=== PATIENT | female | born 1975 | race Caucasian/White ===

== ENCOUNTER 2022-03-22 19:33 | Emergency (ER) | payer MEDICARE, BC ==
[~2022-03-22] VITALS: Ht 162.6 cm; Wt 77.1 kg
[~2022-03-22 19:33] MED LIST: CARB200T PO; LAMO200T2 PO; THYR120T2 PO; ZONI100C31 PO
[2022-03-22] MEDS ORDERED: OXYCODONE/APAP 5-325 MG TABLET PO ONE (20:30)
[2022-03-22] MEDS ORDERED: OXYCODONE/APAP 5-325 MG TABLET ONE (20:38)
[2022-03-22] MEDS ORDERED: HYDR-3980 PO (20:39)
--- NOTE | 2022-03-22 21:44 | NUR ---
Patient resting in bed with friend at bedside, updated on plan of care, awaiting ultrasound. States that pain is better at this time. No s/s of any distress noted, will continue to monitor.
[2022-03-22 23:04] VITALS: BP 119/85
--- NOTE | 2022-03-22 23:04 | NUR ---
Patient discharged to home in stable condition. Written and verbal after care instructions given. Patient verbalizes understanding of instructions. Stressed follow up or return to ER for worsening s/s.
--- NOTE | 2022-03-22 23:05 | NUR ---
Patient taking home by family member.
== END 2022-03-22 23:05 | disposition home or self-care (01) ==
LOC: ER 19:33
DX: M54.50 Low back pain, unspecified (principal); J06.9 Acute upper respiratory infection, unspecified; Z20.822 Contact with and (suspected) exposure to COVID-19; G89.29 Other chronic pain; M54.2 Cervicalgia; Z91.018 Allergy to other foods
CPT/HCPCS: A4663

== ENCOUNTER 2022-06-07 23:13 | Emergency (ER) | payer MEDICARE, BC ==
[~2022-06-07] VITALS: Ht 162.6 cm; Wt 79.4 kg
[~2022-06-07 23:13] MED LIST changes: +HYDR-3980 PO
[2022-06-07] MEDS ORDERED: PROCHLORPERAZINE EDISYLATE 10 MG/2 ML VIAL IV ONE (23:45)
[2022-06-07] MEDS ORDERED: HYDROMORPHONE 1 MG/1 ML DISP.SYRIN IV ONE (23:45)
[2022-06-07] MEDS ORDERED: IV NORMAL SALINE 1000 ML BAG IV ONE (23:45)
--- NOTE | 2022-06-07 23:47 | NUR ---
Assisted into gown, placed on monitor and informed of plan of care. #20g established in left ac, blood collected and sent to lab. no s/s of any distress noted, c/o epigastric pain denies any nausea or vomiting. Awaiting MD exam.
[2022-06-07] MEDS ORDERED: HYDROMORPHONE 1 MG/1 ML DISP.SYRIN ONE (23:57)
[2022-06-07] MEDS ORDERED: PROCHLORPERAZINE EDISYLATE 10 MG/2 ML VIAL ONE (23:57)
[2022-06-08] LABS: HEMATOCRIT 35.8 % (31.2-41.9); MEAN CORPUSCULAR HEMOGLOBIN 30.9 uug (24.7-32.8); MEAN CORPUSCULAR VOLUME 93.5 fL (75.5-95.3); PLATELET COUNT (AUTO) 248 K/uL (179-408)
[2022-06-08 00:15] LABS: CARBON DIOXIDE 29 mmol/L (21-32); CHLORIDE 101 mmol/L (98-107); CREATININE 0.6 mg/dL (0.6-1.3); GLUCOSE 96 mg/dL (74-106); POTASSIUM 3.8 mmol/L (3.5-5.1); UREA NITROGEN, BLOOD 12 mg/dL (7-18)
--- NOTE | 2022-06-08 00:16 | NUR ---
Patient with family at bedside, medicated as per order.
[2022-06-08] MEDS ORDERED: IOHEXOL 300MG/ML 100 ML INFUS..BTL ONE (00:18)
[2022-06-08] MEDS ORDERED: SWABABLE VALVE TRANSFER SET EA MC ONE (00:19)
[2022-06-08] MEDS ORDERED: IV NORMAL SALINE 250 ML IV ONE (00:19)
--- NOTE | 2022-06-08 00:20 | NUR ---
Patient states that she is anxious and requesting something for anxiety, will inform ER MD.
[2022-06-08 00:24] LABS: ALANINE AMINOTRANSFERASE 20 U/L (14-59); ALKALINE PHOSPHATASE 100 U/L (50-136); ASPARTATE AMINOTRANSFERASE 10 U/L (15-37); BILIRUBIN,DIRECT < 0.1 mg/dL (0.0-0.2); BILIRUBIN,TOTAL 0.2 mg/dL (0.2-1.0); LIPASE 145 U/L (73-393); TOTAL PROTEIN, SERUM 7.2 g/dL (6.4-8.2)
[2022-06-08] MEDS ORDERED: LORAZEPAM 1 MG TABLET ONE (00:33)
[2022-06-08] MEDS ORDERED: LORAZEPAM 0.5 MG TABLET PO ONE (00:45)
--- NOTE | 2022-06-08 01:06 | NUR ---
Ambulated to bathroom and back to bed.
[2022-06-08 01:17] LABS: *BILIRUBIN,URIN NEGATIVE (NEGATIVE); *BLOOD, URINE NEGATIVE (NEGATIVE); *CLARITY,URINE CLEAR (CLEAR); *KETONES,URINE NEGATIVE (NEGATIVE); *UROBILINOGEN,URINE 0.2 E.U./dl (NORMAL); LEUKOCYTE ESTERASE ,URINE NEGATIVE (NEGATIVE); NITRITE, URINE NEGATIVE (NEGATIVE); UGLUCOSE NEGATIVE (NEGATIVE)
[2022-06-08 01:18] LABS: *COLOR,URINE LIGHT YELLOW (YELLOW); *URINE HCG, QUAL NEGATIVE (NEGATIVE)
--- NOTE | 2022-06-08 01:48 | NUR ---
patient to CT unit.
--- NOTE | 2022-06-08 02:38 | NUR ---
PATIENT RESTING IN BED, FAMILY REMAINS AT BEDSIDE, PATIENT IS READY TO GO WANTS TO BE CALLED WITH TEST RESULTS, CONTINUES TO TAKE MONITOR OFF STATES MAKES HER ANXIOUS, REQUESTED THAT I STOP HER IVF, DONE PER REQUEST MD WAS INFORMED.
--- NOTE | 2022-06-08 02:53 | NUR ---
md at bedside talking to patient.
[2022-06-08] MEDS ORDERED: HYDR-3980 PO (02:55)
--- NOTE | 2022-06-08 02:59 | NUR ---
ACI GIVEN, HL REMOVED REMAINS STABLE FOR DISCHARGE HOME WITH FAMILY.
[2022-06-08 03:00] VITALS: BP 138/72
== END 2022-06-08 03:00 | disposition home or self-care (01) ==
LOC: ER 23:13
DX: K80.50 Calculus of bile duct without cholangitis or cholecystitis without obstruction (principal); G89.29 Other chronic pain; M54.2 Cervicalgia; M54.50 Low back pain, unspecified; M25.562 Pain in left knee; Z79.899 Other long term (current) drug therapy
CPT/HCPCS: 99285; 74177; 96374; 76705; 96361; 96375; 80076; 80048; 83690; 85025; 36415; 81003; 84703; 83605; J0780; J1170; Q9967; J7040; A4663